=== PATIENT | male | born 1955 | race Caucasian/White ===

== ENCOUNTER → 2024-09-16 | Outpatient (REF) | payer MEDICARE ==
[~2024-09-16] MED LIST: AMLODIPINE BESY10 MG PO; BENICAR20 MG PO; CHOLESTYRAMINE L4 GM PO; CYCLOBENZAPRINE10 MG PO; GABAPENTIN PO; HYDROCHLOROTHIA25 MG PO; IOPAMIDOL 370 MG/ML 100 ML INFUS..BTL INJ ONE; LOSARTAN-HCTZ1 EAC1 PO; LOSARTAN-HCTZ1 EACH PO; LOVASTATIN20 MG PO; LOVASTATIN40 MG PO; MODAFINIL100 MG PO; NAPROSYN250 MG PO; NAPROXEN500 MG PO; PRINIVIL20 MG PO; ULTRAM 50MG50 MG PO
[2024-09-16 09:20] LABS: CREATININE, SERUM 0.8 mg/dL (0.72-1.25)
== END ==
LOC: CT 07:52
PROVIDERS: ATTEND Family Medicine
DX: R05.8 Other specified cough (principal); J98.8 Other specified respiratory disorders; R91.1 Solitary pulmonary nodule; R93.89 Abnormal findings on diagnostic imaging of other specified body structures
CPT/HCPCS: 36415; 71260; 82565; 84520; Q9967

== ENCOUNTER 2025-06-09 12:35 | Inpatient (IN) | payer MEDICARE ==
[~2025-06-09] VITALS: Ht 193 cm; Wt 157.9 kg
[~2025-06-09 12:35] MED LIST changes: -IOPAMIDOL 370 MG/ML 100 ML INFUS..BTL INJ ONE
[2025-06-09 12:50] VITALS: TEMP 97.9
[2025-06-09] MEDS ORDERED: SODIUM CHLORIDE FLUSH 10 ML SYR IV PRN (13:00)
[2025-06-09 13:52] LABS: BASOPHILS % 0.8 % (0.0-1.0); EOSINOPHILS % 1.2 % (0.0-6.0); LYMPHOCYTES % 23.3 % (18.0-39.1); MONOCYTES % 7.7 % (4.4-11.3); NEUTROPHILS % 66.3 % (38.7-80.0); RED CELL DISTRIBUTION WIDTH 13.5 % (11.7-14.4)
[2025-06-09 14:12] LABS: EST GLOMERULAR FILTRATION RATE 63.0 ML/MIN (>=60)
[2025-06-09] MEDS ORDERED: SODIUM CHLORIDE 0.9% 100 ML ONE (14:26)
[2025-06-09] MEDS ORDERED: IOPAMIDOL 370 MG/ML 100 ML INFUS..BTL INJ ONE (14:27)
[2025-06-09 15:00] VITALS: PULSE 63; RESP 22
[2025-06-09] MEDS ORDERED: ONDANSETRON HCL INJ 2MG/ML 2ML 2 MG/ML VIAL IV PRN (15:45)
[2025-06-09] MEDS ORDERED: SODIUM CHLORIDE FLUSH 10 ML SYR INJ PRN (15:45)
[2025-06-09] MEDS ORDERED: DULOXETINE HCL60 MG (17:42)
[2025-06-09] MEDS ORDERED: ZETIA10 MG PO (17:42)
[2025-06-09] MEDS ORDERED: VITAMIN E400 UNI1 PO (17:42)
[2025-06-09] MEDS ORDERED: ATORVASTATIN CA40 MG PO (17:42)
[2025-06-09] MEDS ORDERED: FERROUS SULFAT325 M1 PO (17:42)
[2025-06-09] MEDS ORDERED: MOUNJARO10 MG/0.5 (17:42)
[2025-06-09] MEDS ORDERED: NABUMETONE750 MG (17:42)
[2025-06-09] MEDS ORDERED: D3 PLUS K2 DOT1 EACH (17:42)
[2025-06-09] MEDS ORDERED: OLMESARTAN-HCT1 EAC2 (17:42)
[2025-06-09 17:45] VITALS: BP 138/70; PULSE 75; RESP 18; TEMP 97.7; O2SAT 100
[2025-06-09 19:21] VITALS: BP 107/43; PULSE 62; RESP 18; TEMP 97.7; O2SAT 98
[2025-06-09 21:00] VITALS: BP 107/43; PULSE 62; RESP 18; TEMP 97.7; O2SAT 98
[2025-06-09 23:22] VITALS: BP 111/50; PULSE 63; RESP 18; TEMP 97.8; O2SAT 97
[2025-06-10] VITALS (8 sets, daily range): BP systolic 98–137; BP diastolic 47–91; PULSE 59–87; RESP 16–20; TEMP 97.3–97.8; O2SAT 96–100
[2025-06-10 06:46] LABS: EST GLOMERULAR FILTRATION RATE 81.0 ML/MIN (>=60)
[2025-06-10 08:49] LABS: BASOPHILS % 1.0 % (0.0-1.0); EOSINOPHILS % 2.2 % (0.0-6.0); LYMPHOCYTES % 22.9 % (18.0-39.1); MONOCYTES % 5.5 % (4.4-11.3); NEUTROPHILS % 67.9 % (38.7-80.0); RED CELL DISTRIBUTION WIDTH 13.7 % (11.7-14.4)
[2025-06-10] MEDS ORDERED: DOCUSATE SODIUM 100 MG CAP PO PRN (09:15)
[2025-06-10] MEDS ORDERED: ALBUTEROL/IPRATROPIUM 3 ML NEB NEB PRN (09:15)
[2025-06-10] MEDS ORDERED: DEXTROSE 50% SYRINGE 50 ML IV PRN (09:15)
[2025-06-10] MEDS ORDERED: METOPROLOL TARTRATE INJ 1 MG/ML VIAL IV PRN (09:15)
[2025-06-10] MEDS: SODIUM CHLORIDE 0.9% 1000ML 1,000 ML IV SCH (09:50)
[2025-06-10] MEDS: INSULIN REGULAR, HUMAN 100 UNIT/1 ML SQ SCH (11:30)
[2025-06-10 15:10] LABS: CHOL/HDL RATIO 3.9 (3.9-4.7); LDL CHOLESTEROL 75.0 MG/DL (60-130)
[2025-06-10] MEDS: FERROUS SULFATE 325 MG TAB PO SCH (17:57)
[2025-06-10] MEDS: ATORVASTATIN 40 MG TAB PO SCH (21:07)
[2025-06-10] MEDS: MELATONIN 3 MG TAB PO PRN (21:08)
[2025-06-11 07:20] VITALS: PULSE 68; RESP 18; O2SAT 98
[2025-06-11 08:00] VITALS: BP 137/58; PULSE 68; RESP 18; TEMP 97.5; O2SAT 98
[2025-06-11 08:10] VITALS: BP 124/68; PULSE 68; RESP 18; TEMP 98; O2SAT 98
[2025-06-11 08:10] LABS: EST GLOMERULAR FILTRATION RATE 95.0 ML/MIN (>=60)
[2025-06-11] MEDS: EZETIMIBE 10 MG TAB PO SCH (08:32)
[2025-06-11 12:53] VITALS: BP 126/55; PULSE 67; RESP 18; TEMP 97.9; O2SAT 98
[2025-06-11 15:43] VITALS: BP 139/62; PULSE 61; RESP 18; TEMP 98; O2SAT 97
[2025-06-11] MEDS ORDERED: VENTOLIN HFA18 GM INH (18:29)
== END 2025-06-11 20:00 | disposition home or self-care (01) | DRG 641 ==
LOC: ER 12:44 → ERHOLD 15:34 → MED/SURG2 17:39 → OBSVTOIN 06-11 14:09
PROVIDERS: ADMIT Internal Medicine; ATTEND Internal Medicine
DX: E86.0 Dehydration (principal); Z68.41 Body mass index [BMI] 40.0-44.9, adult; R55 Syncope and collapse; E87.20 Acidosis, unspecified; R06.02 Shortness of breath; E78.5 Hyperlipidemia, unspecified; R91.8 Other nonspecific abnormal finding of lung field; E66.01 Morbid (severe) obesity due to excess calories; I10 Essential (primary) hypertension; R73.03 Prediabetes; R74.8 Abnormal levels of other serum enzymes; R10.31 Right lower quadrant pain; N20.0 Calculus of kidney; Z79.85 Long-term (current) use of injectable non-insulin antidiabetic drugs; Z79.899 Other long term (current) drug therapy
CPT/HCPCS: 36415; 71045; 71275; 74174; 80048; 80053; 80061; 82550; 82948; 83036; 83880; 84484; 85025; 93005; 93306; 93880; 94760; 94799; 96372; 99284; G0378; J7030; J7050; Q9967